=== PATIENT | female | born 1930 | race Caucasian/White ===

== ENCOUNTER 2016-10-16 17:52 | Emergency (ER) | payer MEDICARE, OTHER ==
[~2016-10-16] VITALS: Ht 160 cm; Wt 95.2 kg
[~2016-10-16 17:52] MED LIST: ADVIL200 M1 PO; ASPIRIN EC325 MG PO; ASPIRIN EC81 MG PO; CIPRO500 MG PO; CITALOPRAM HBR40 MG PO; CLEOCIN HCL300 MG PO; COUMADIN5 MG PO; COZAAR25 MG PO; DILTIAZEM 24HR180 MG PO; DILTIAZEM ER180 MG PO; FERROUS SULFAT325 MG PO; GLUCOSE TEST S1 EACH MC; HUMULIN 70100 UNIT/1 SUB-Q; IBUPROFEN400 MG PO; LANTUS100 UNIT/1 SUB-Q; LANTUS100 UNITS/ SUB-Q; LOSARTAN-HCTZ1 EAC1 PO; MELOXICAM7.5 MG PO; MILK OF MA400 MG/5 M PO; NITROSTAT0.4 MG SL; NORCO 5-325 TA1 EACH PO; NORVASC5 MG PO; NOVOLOG100 UNITS/ IV; PANTOPRAZOLE SO40 MG PO; POTASSIUM CHLO10 MEQ PO; POTASSIUM CHLO20 ME1 PO; PROTONIX40 MG PO; SIMVASTATIN10 MG PO; TYLENOL325 MG PO; VITAMIN C250 MG PO; WARFARIN SODIUM3 MG PO; ZOCOR10 MG PO; ZOFRAN ODT4 MG PO; [UNRECOGNIZED DRUG - REMARK]
[2016-10-16] MEDS ORDERED: NAPROSYN500 MG PO (20:27)
== END 2016-10-16 20:40 | disposition home or self-care (01) ==
LOC: ED 17:52
DX: M26.69 Other specified disorders of temporomandibular joint (principal); E11.9 Type 2 diabetes mellitus without complications; I11.0 Hypertensive heart disease with heart failure; I50.9 Heart failure, unspecified; E87.6 Hypokalemia; L82.1 Other seborrheic keratosis; Z86.73 Personal history of transient ischemic attack (TIA), and cerebral infarction without residual deficits; Z90.49 Acquired absence of other specified parts of digestive tract; Z88.0 Allergy status to penicillin; Z88.5 Allergy status to narcotic agent; Z79.4 Long term (current) use of insulin; Z79.82 Long term (current) use of aspirin; Z79.02 Long term (current) use of antithrombotics/antiplatelets; Z79.899 Other long term (current) drug therapy
CPT/HCPCS: 70486; 99284

== ENCOUNTER 2016-12-06 03:29 | Emergency (ER) | payer MEDICARE, OTHER ==
[~2016-12-06] VITALS: Ht 160 cm; Wt 95.2 kg
[~2016-12-06 03:29] MED LIST changes: +NAPROSYN500 MG PO
== END 2016-12-06 04:28 | disposition home or self-care (01) ==
LOC: ED 03:29
DX: S09.90XA Unspecified injury of head, initial encounter (principal); E11.9 Type 2 diabetes mellitus without complications; I11.0 Hypertensive heart disease with heart failure; I50.9 Heart failure, unspecified; I48.91 Unspecified atrial fibrillation; D64.9 Anemia, unspecified; Z86.73 Personal history of transient ischemic attack (TIA), and cerebral infarction without residual deficits; Z90.49 Acquired absence of other specified parts of digestive tract; Z90.89 Acquired absence of other organs; Z88.0 Allergy status to penicillin; Z88.5 Allergy status to narcotic agent; Z79.899 Other long term (current) drug therapy; Z79.82 Long term (current) use of aspirin; Z79.01 Long term (current) use of anticoagulants; W06.XXXA Fall from bed, initial encounter
CPT/HCPCS: 90471; 90715; 99282

== ENCOUNTER 2017-04-13 12:40 | Emergency (ER) | payer MEDICARE, OTHER ==
[~2017-04-13] VITALS: Ht 160 cm; Wt 95.2 kg
== END 2017-04-13 15:07 | disposition home or self-care (01) ==
LOC: ED 12:40
DX: R53.1 Weakness (principal); E11.9 Type 2 diabetes mellitus without complications; I11.0 Hypertensive heart disease with heart failure; I50.9 Heart failure, unspecified; I48.91 Unspecified atrial fibrillation; Z79.01 Long term (current) use of anticoagulants; Z88.0 Allergy status to penicillin; Z88.5 Allergy status to narcotic agent; Z79.4 Long term (current) use of insulin; Z79.899 Other long term (current) drug therapy
CPT/HCPCS: 70450; 80053; 85025; 85610; 99284

== ENCOUNTER 2017-04-24 17:01 | Emergency (ER) | payer MEDICARE, OTHER ==
[~2017-04-24] VITALS: Ht 160 cm; Wt 95.2 kg
--- NOTE | 2017-04-24 18:34 | EKG ---
[facility] [address] [facility] [place] [address] Signed Atrial fibrillation Anteroseptal infarct , age undetermined Abnormal ECG No previous ECGs available Confirmed by EARNEST BOYLE MD ([id number]) on 04/24/2017 6:34:03 PM Electronically Signed By: EARNEST BOYLE MD 04/24/17 1834 PATIENT NAME: JULIA SOLORIO Electrocardiogram DATE OF : 34 PHYSICIAN: EARNEST BOYLE MD REPORT #: [id number] REPORT IS CONFIDENTIAL AND NOT TO BE RELEASED WITHOUT AUTHORIZATION
== END 2017-04-24 19:20 ==
LOC: ED 17:01
DX: E11.649 Type 2 diabetes mellitus with hypoglycemia without coma (principal); I11.0 Hypertensive heart disease with heart failure; I48.91 Unspecified atrial fibrillation; D64.9 Anemia, unspecified; I48.2 Chronic atrial fibrillation; Z88.0 Allergy status to penicillin; Z88.5 Allergy status to narcotic agent; Z79.899 Other long term (current) drug therapy; Z79.01 Long term (current) use of anticoagulants
CPT/HCPCS: 80053; 81001; 85025; 87077; 87088; 87186; 93005; 93010; 99285

== ENCOUNTER 2018-04-20 13:32 | Emergency (ER) | payer MEDICARE, OTHER ==
[~2018-04-20] VITALS: Ht 160 cm; Wt 90.7 kg
[~2018-04-20 13:32] MED LIST changes: +COZAAR100 MG PO; +ELIQUIS2.5 MG PO; +NOVOLIN R100 UNIT/1 INJ
== END 2018-04-20 15:28 | disposition home or self-care (01) ==
LOC: ED 13:32
PROC: 2W3DX1Z Immobilization of Left Lower Arm using Splint (ICD-10-PCS; principal; 2018-04-20)
DX: M02.332 Reiter's disease, left wrist (principal); E11.9 Type 2 diabetes mellitus without complications; I48.91 Unspecified atrial fibrillation; I11.0 Hypertensive heart disease with heart failure; D64.9 Anemia, unspecified; I50.9 Heart failure, unspecified; G47.30 Sleep apnea, unspecified; Z86.73 Personal history of transient ischemic attack (TIA), and cerebral infarction without residual deficits; E78.5 Hyperlipidemia, unspecified; Z88.0 Allergy status to penicillin; Z88.5 Allergy status to narcotic agent; Z79.899 Other long term (current) drug therapy
CPT/HCPCS: 29125; 73110; 99283-25

== ENCOUNTER 2018-06-29 07:34 | Emergency (ER) | payer MEDICARE, OTHER ==
[~2018-06-29] VITALS: Ht 160 cm; Wt 90.7 kg
[2018-06-29] MEDS ORDERED: NOVOLIN 70100 UNIT/1 (08:22)
[2018-06-29] MEDS ORDERED: BACTRIM DS TAB1 EACH PO (08:24)
[2018-06-29] MEDS ORDERED: VITAMIN C250 MG PO (08:27)
[2018-06-29] MEDS ORDERED: ZOFRAN4 MG PO (08:31)
[2018-06-29] MEDS ORDERED: ULTRAM50 MG PO (08:32)
[2018-06-29] MEDS ORDERED: COZAAR100 MG PO (09:19)
== END 2018-06-29 09:43 | disposition home or self-care (01) ==
LOC: ED 07:34
DX: R07.89 Other chest pain (principal); R41.0 Disorientation, unspecified; E87.1 Hypo-osmolality and hyponatremia; E87.6 Hypokalemia; E11.9 Type 2 diabetes mellitus without complications; I11.0 Hypertensive heart disease with heart failure; I50.9 Heart failure, unspecified; E78.5 Hyperlipidemia, unspecified; D64.9 Anemia, unspecified; Z86.73 Personal history of transient ischemic attack (TIA), and cerebral infarction without residual deficits; Z90.49 Acquired absence of other specified parts of digestive tract; Z88.0 Allergy status to penicillin; Z88.5 Allergy status to narcotic agent; Z79.899 Other long term (current) drug therapy; Z79.4 Long term (current) use of insulin; W19.XXXA Unspecified fall, initial encounter
CPT/HCPCS: 70450; 80053; 85025; 99285-25

== ENCOUNTER 2018-07-30 14:57 | Emergency (ER) | payer MEDICARE, OTHER ==
[~2018-07-30] VITALS: Ht 160 cm; Wt 90.7 kg
[~2018-07-30 14:57] MED LIST changes: +BACTRIM DS TAB1 EACH PO; +NOVOLIN 70100 UNIT/1; +ULTRAM50 MG PO; +ZOFRAN4 MG PO
== END 2018-07-30 18:09 | disposition home or self-care (01) ==
LOC: ED 14:57
DX: S70.02XA Contusion of left hip, initial encounter (principal); S70.01XA Contusion of right hip, initial encounter; E11.9 Type 2 diabetes mellitus without complications; I11.0 Hypertensive heart disease with heart failure; I50.9 Heart failure, unspecified; I48.91 Unspecified atrial fibrillation; Z86.73 Personal history of transient ischemic attack (TIA), and cerebral infarction without residual deficits; Z90.49 Acquired absence of other specified parts of digestive tract; Z88.0 Allergy status to penicillin; Z88.5 Allergy status to narcotic agent; Z79.4 Long term (current) use of insulin; Z79.899 Other long term (current) drug therapy; W18.30XA Fall on same level, unspecified, initial encounter
CPT/HCPCS: 72131; 72192; 99283-25

== ENCOUNTER 2018-10-03 05:33 | Emergency (ER) | payer MEDICARE, OTHER ==
[~2018-10-03] VITALS: Ht 160 cm; Wt 90.7 kg
[~2018-10-03 05:33] MED LIST changes: +ACETAMINOPHEN500 MG PO; +KEFLEX500 MG PO; +MACULAR HEALTH1 EACH PO; +NYSTATIN1 EAC9 MISC; +SYSTANE 0.3-0.415 ML OPTH
[2018-10-03] MEDS ORDERED: FUROSEMIDE20 MG PO (10:00)
--- NOTE | 2018-10-03 14:34 | EKG ---
[facility] [address] [facility] [place] [address] Signed Atrial fibrillation with premature ventricular or aberrantly conducted complexes Left axis deviation Anterolateral infarct (cited on or before 24-APR-2017) Abnormal ECG When compared with ECG of 24-APR-2017 18:21, Questionable change in initial forces of Lateral leads Nonspecific T wave abnormality has replaced inverted T waves in Inferior leads Confirmed by BECKY MEDINA DO ([id number]) on 10/03/2018 2:34:35 PM Electronically Signed By: BECKY MEDINA DO 10/03/18 1434 PATIENT NAME: JULIA SOLORIO Electrocardiogram DATE OF : 34 PHYSICIAN: BECKY MEDINA DO REPORT #: [id number] REPORT IS CONFIDENTIAL AND NOT TO BE RELEASED WITHOUT AUTHORIZATION
== END 2018-10-03 10:20 | disposition home or self-care (01) ==
LOC: ED 05:33
DX: I11.0 Hypertensive heart disease with heart failure (principal); I50.9 Heart failure, unspecified; E11.9 Type 2 diabetes mellitus without complications; Z86.73 Personal history of transient ischemic attack (TIA), and cerebral infarction without residual deficits; Z88.0 Allergy status to penicillin; Z88.5 Allergy status to narcotic agent; Z79.4 Long term (current) use of insulin; Z79.899 Other long term (current) drug therapy
CPT/HCPCS: 71045; 80053; 83735; 83880; 84484; 85025; 93005; 93010; 96374; 99285-25; J1940

== ENCOUNTER 2018-10-13 07:48 | Inpatient (IN) | payer MEDICARE, OTHER ==
[~2018-10-13] VITALS: Ht 160 cm; Wt 81.6 kg
[~2018-10-13 07:48] MED LIST changes: +FUROSEMIDE20 MG PO
--- OUTSIDE RECORDS SUMMARY | 2018-10-13 07:50 | XMS ---
PreManage Notification: JULIA SOLORIO Security Freight Rate Analyst Events No recent Security Events currently on file CRITERIA MET - 6 ED Visits in 6 Months - [facility] - 2 Visits in 30 Days CARE PROVIDERS Kevin Gordon Current PHONE: Unknown Jaime has no Care Guidelines for this patient. Lisa VISIT COUNT (12 MO.) 6 [facility] TOTAL 6 NOTE: Visits indicate total known visits. ED/UCC VISIT TRACKING (12 MO.) 10/13/2018 07:48 [facility] TYPE: Emergency COMPLAINT: - SOB 10/03/2018 05:33 [facility] TYPE: Emergency COMPLAINT: - SOB DIAGNOSES: - Heart failure, unspecified - Allergy status to penicillin - Personal history of transient ischemic attack (TIA), and cerebral infarction without residual deficits - Shortness of breath - terminal make up operator (current) use of insulin - Hypertensive heart disease with heart failure - Other care home (current) drug therapy - Type 2 diabetes mellitus without complications - Allergy status to narcotic agent status 08/31/2018 15:48 [facility] TYPE: Emergency COMPLAINT: - FALL DIAGNOSES: - Heart failure, unspecified - Hypertensive heart disease with heart failure - Low back pain - Allergy status to narcotic agent status - Fall on same level, unspecified, initial encounter - Other care home (current) drug therapy - Personal history of transient ischemic attack (TIA), and cerebral infarction without residual deficits - correction (current) use of insulin - Type 2 diabetes mellitus without complications - Allergy status to penicillin - Pain in left hip - Unspecified atrial fibrillation 07/30/2018 14:58 [facility] TYPE: Emergency COMPLAINT: - FALL DIAGNOSES: - Pain in right hip - Unspecified atrial fibrillation - Heart failure, unspecified - Fall on same level, unspecified, initial encounter - Hypertensive heart disease with heart failure - Allergy status to narcotic agent status - Other termite control technician (current) drug therapy - Allergy status to penicillin - Contusion of left hip, initial encounter - Contusion of right hip, initial encounter - Type 2 diabetes mellitus without complications - terminal make up operator (current) use of insulin - Personal history of transient ischemic attack (TIA), and cerebral infarction without residual deficits - Acquired absence of other specified parts of digestive tract 06/29/2018 07:34 [facility] TYPE: Emergency COMPLAINT: - ALT LOC DIAGNOSES: - Anemia, unspecified - Acquired absence of other specified parts of digestive tract - Type 2 diabetes mellitus without complications - Hypertensive heart disease with heart failure - Hyperlipidemia, unspecified - Disorientation, unspecified - terminal make up operator (current) use of insulin - Other care home (current) drug therapy - Allergy status to penicillin - Unspecified fall, initial encounter - Personal history of transient ischemic attack (TIA), and cerebral infarction without residual deficits - Hypokalemia - Heart failure, unspecified - Hypo-osmolality and hyponatremia - Allergy status to narcotic agent status - Pleurodynia - Other chest pain 04/20/2018 13:[address] [facility] [place] TYPE: Emergency COMPLAINT: - L ARM PAIN DIAGNOSES: - Type 2 diabetes mellitus without complications - Allergy status to narcotic agent status - Pain in left wrist - Christy's disease, left wrist - Hypertensive heart disease with heart failure - Personal history of transient ischemic attack (TIA), and cerebral infarction without residual deficits - Heart failure, unspecified - Allergy status to penicillin - Other termite control technician (current) drug therapy - Anemia, unspecified - Hyperlipidemia, unspecified - Sleep apnea, unspecified - Unspecified atrial fibrillation INPATIENT VISIT TRACKING (12 MO.) No inpatient visits to display in this time frame [email or web address]
--- NOTE | 2018-10-13 13:00 | NUR ---
PT ADMITTED AND ASSESSMENT COMPLETED. PT DAUGHTER CAME INTO SEE PT. SHE WILL BE BACK TOMMORROW AT SOME POINT. PT LUNCH ORDERED, PT BED IS IN THE LOWEST POSITION, CALL LIGHT WITHIN REACH.
[2018-10-13] MEDS ORDERED: ISOSORBIDE MONO30 MG PO (14:18)
[2018-10-13] MEDS ORDERED: NOVOLIN 70100 UNIT/1 SUB-Q (14:22)
[2018-10-13] MEDS ORDERED: NYSTATIN15 GM TOP (14:30)
--- NOTE | 2018-10-13 14:33 | NUR ---
MEDICATION RECONCILIATION COMPLETED USING THE MAR FROM KYREE SHIPLEY
--- NOTE | 2018-10-13 15:15 | NUR ---
PT ATE SOME OF HER LUNCH AT WAS ORDERED FOR HER. PT DENIES PAIN AND DOES NOT WANT TO WATCH TV AT THIS TIME. PT IS ABLE TO USE CALL LIGHT WHEN SHE WANTS OR NEEDS SOMTHING.
--- NOTE | 2018-10-13 16:05 | EKG ---
[facility] [address] [facility] [place] [address] Signed Atrial fibrillation Left axis deviation Anteroseptal infarct (cited on or before 24-APR-2017) Abnormal ECG When compared with ECG of 03-OCT-2018 05:47, Nonspecific T wave abnormality no longer evident in Anterior leads Confirmed by EARNEST BOYLE MD ([id number]) on 10/13/2018 4:05:33 PM Electronically Signed By: EARNEST BOYLE MD 10/13/18 1605 PATIENT NAME: DANIELA SOLORIOFERNANDO BENJAMIN Electrocardiogram DATE OF : 34 PHYSICIAN: EARNEST BOYLE MD REPORT #: [id number] REPORT IS CONFIDENTIAL AND NOT TO BE RELEASED WITHOUT AUTHORIZATION
--- NOTE | 2018-10-13 16:44 | NUR ---
PT APPEARS TO BE ASLEEP AT THIS TIME, SPO2 97% WITH O2 AT 2L'S VIA NC.
--- NOTE | 2018-10-13 18:05 | NUR ---
DR BOYLE NOTIFIED ABOUT VITAL SIGNS TRENDS, NO NEW ORDERS AT THIS TIME.
--- NOTE | 2018-10-13 18:25 | NUR ---
PT REFUSED TO BRUSH HER TEETH AT THIS TIME. "I AM JUST NOT UP TO IT RIGHT NOW" STAFF LOWERED PT HEADS SO SHE CAN REST AT THIS TIME.
--- NOTE | 2018-10-13 19:33 | NUR ---
SHIFT REPORT RECEIVED SPOKE WITH [facility] PATIENT'S POLST FORM. STAFF THERE REPORT THE ORIGINAL FORM WAS SENT WITH THE PATIENT TO THE ED ON A VISIT AT AN UNKNOWN TIME. NO COPY IS AVAILABLE AT THIS TIME. NOTIFIED.
--- NOTE | 2018-10-13 20:22 | NUR ---
EVENING ASSESSMENT DONE. PATIENT ORIENTED TO LOCATION, YEAR AND SELF. STATES SHE IS HERE FOR "BEING SHORT OF BREATH". DISCUSSED FINDINGS WITH HEART FAILURE AND PLAN FOR LASIX AND ECHO TOMORROW. PATIENT DENIES PAIN OR FEELING SOB. TOLERATING 2L NC, TITRATED TO 1L NC. LUNG SOUNDS CLEAR IN UPPER LOBES WITH CRACKLES IN CATIA BASES. SLIGHTLY MORE ON THE RIGHT. HEART SOUNDS IRREGULAR WITH HIGH PITCHED S2. ABD SOFT AND NONTENDER. PATIENT DENIES GI UPSET. EDEMA NOTED IN CATIA LOWER EXTREMITITES, 3+ TO UPPER THIGHS. CMS INTACT. DIANE DRAINING DILUTE YELLOW URINE. BCG WNL, NO SSI REQUIRED. PATIENT DENIES ANY NEEDS. CALL LIGHT IN REACH.
--- NOTE | 2018-10-13 20:53 | NUR ---
RT IN TO SEE PATIENT. IS USED. PATIENT TOLERATING 1L NC WITH 95% O2 SAT.
--- NOTE | 2018-10-13 22:16 | NUR ---
PATIENT RESTING IN BED. VS STABLE. DENIES ANY NEEDS AT THIS TIME. CALL LIGHT IN HAND.
--- NOTE | 2018-10-14 00:30 | NUR ---
SCHEDULED MEDICATIONS PROVIDED PER ORDER. PATIENT ORIENTED TO SELF AND PLACE. DENIES ANY NEEDS. APPEARS TO HAVE SLIGHTLY LABORED BREATHING. PATIENT REMOVED NC. O2 SAT 87% ON ROOM AIR. 1L NC PLACED ON PATIENT.
--- NOTE | 2018-10-14 04:30 | NUR ---
PATIENT RESTING IN BED. ORIENTED TO PLACE AND EVENT. DENIES ANY SOB OR PAIN. LUNG SOUNDS CONTINUE TO BE CLEAR IN UPPER LOBES CATIA WITH CRACKLES IN THE BASES. TOLERATING 1L NC. EDEMA IN LOWER EXTREMITITES IMPROVED FROM 3+ TO 2+. DIANE EMPTIED, URINE CLEAR AND DILUTE. PATIENT DENIES ANY NEEDS. CALL LIGHT IN REACH.
--- NOTE | 2018-10-14 06:13 | NUR ---
PATIENT UP TO BEDSIDE FOR STANDING WEIGHT. PATIENT REQUIRED 2 PERSON ASSIST AND WAS SOB FROM THE EFFORT. ASSISTED PATIENT BACK TO BED, HOB ELEVATED. STANDING WEIGHT 182.8 LBS COMPARED TO 194 LB BED WEIGHT YESTERDAY.
--- NOTE | 2018-10-14 06:44 | NUR ---
PATIENT CALLING OUT FOR HELP. REPORTS FEELING HIGH IN THE AIR AND BEING AFRAID OF HEIGHTS. "PUT ME DOWN OUT OF THE AIR, I KNOW WHAT YOU ARE TRYING TO DO". ATTEMPTS TO CALM THE PATIENT WERE UNSUCESSFUL AND PATIENT DEMANDED STAFF LEAVE THE ROOM. THIS RN RETURNED TO THE ROOM 5 MINS LATER AND THE PATIENT WAS IN GOOD SPIRITS AND DENIED ANY NEEDS.
--- NOTE | 2018-10-14 07:33 | NUR ---
PATIENT HAVING ECHO DONE AT THIS TIME. HEART RATE IN THE 80s, AFIB. LAST BP 163/71.
--- NOTE | 2018-10-14 08:41 | NUR ---
PATIENT RESTING IN BED UPON INITIAL ASSESSMENT. PT STATES SHE IS FEELING BETTER COMPARED TO WHEN SHE CAME INTO THE HOSPITAL. PT NOTES, "I'M GOING TO NEED TO GO HOME SOMETIME TODAY, I'VE GOT SOME THINGS TO TAKE CARE OF." WHEN PATIENT ASKED FURTHER WHY SHE NEEDS TO GO HOME, SHE STATES, "WELL I'VE GOT SOME CHECKS TO WRITE, AND I NEED TO GET MY CLOTHES ORDERED FROM THE CATALOG." DISCUSSION HAD WITH PATIENT REGARDING HER REASON FOR ADMISSION AND IMPORTANCE OF STAYING IN HOSPITAL UNTIL SHE IS WELL. PT ABLE TO ANSWER ORIENTATION QUESTIONS CORRECTLY, BUT STILL SEEMS SOMEWHAT CONFUSED ABOUT RECENT EVENTS. PT NOTES SHE HAS FALLEN AT LEAST 3 TIMES LATELY. BREAKFAST ORDERED FOR PATIENT. ASSESSMENT COMPLETE. PT HAS VERY LOUD MURMUR HEARD THROUGHOUT CHEST. CALL LIGHT WITHIN REACH.
--- NOTE | 2018-10-14 10:09 | NUR ---
DR. BOYLE IN ROOM TO SEE PATIENT. PLAN TO GIVE MORE LASIX TODAY. PT REMAINS PLEASANTLY CONFUSED, AND OFTEN REPEATS HERSELF. IV MAG STARTED AND ORAL POTASSIUM GIVEN. 40 MG LASIX GIVEN (SEE EMAR). PT HAS BEEN DROPPING SP02 DOWN TO 88% ON ROOM AIR. 1 L NC TURNED BACK ON AT THIS TIME. PT DENIES FURTHER NEEDS AND CALL LIGHT WITHIN REACH.
--- NOTE | 2018-10-14 11:13 | NUR ---
PATIENT WORKING WITH PHYS. THERAPY AND NOW UP IN CHAIR. PT IS A 2 PERSON ASSIST OUT OF BED AND SLOW TO MOVE. BED IN LINENS CHANGED. PT WILL EAT LUNCH WHILE SITTING IN CHAIR. CONTINUE TO MONITOR.
--- NOTE | 2018-10-14 12:37 | NUR ---
PT SITTING UP IN BED, ALERT AND SEEMS TO BE PLEASANTLY CONFUSED. THE LONGER WE VISITED, THE MORE CONFUSED SHE BECAME AND DIDN'T SEEM TO BE AWARE. PT DID SAY THAT SHE WOULD LIKE THE CHAIR CAR ATTENDANT TO COME IN. I ALERTED HIM. SHE THANKED ME FOR VISIT. EXTENDED A BLESSING. WILL FOLLOW NEEDED
--- NOTE | 2018-10-14 12:41 | NUR ---
ASSESSMENT COMPLETE. PT REMAINS SITTING IN RECLINER AT THIS TIME EATING LUNCH. O2 1L NC INPLACE, SATS 96%, RR20. PT DENIES OTHER NEEDS AT THIS TIME. CALL LIGHT IN REACH.
--- NOTE | 2018-10-14 15:46 | NUR ---
BED BATH COMPLETE. DIANE CARE DONE. PT AMBULATED BACK TO BED WITH WALKER AND TWO PERSON STAND-BY ASSIST. PT PATTI WELL AND NOTES "I'M WALKING BETTER NOW THAN I WAS THIS MORNING". INCREASED SOB NOTED WITH AMBULATION. PT IN BED NOW, O2 SATS 91% OF RA, RR 22. PT DENIES NEEDS AT THIS TIME, CALL LIGHT IN REACH.
--- NOTE | 2018-10-14 16:48 | NUR ---
Certified Heart Failure Nurse Notes: Diagnosis: CHF History includes: diabetes, hypertension, murmur, atrial fibrillation PCP: Dr. Gordon Date of echocardiogram 10/14/18- results pending Social support system: Weight monitoring: Lives in assisted living. We will contact them to ensure scales present and weights are done with identifying when to notify PCP. Symptom management: Addressed monitoring and reporting changes in weight or symptoms Diet: Usual meals are from facility dining room. Reviewed high sodium foods to avoid with patient. She states she does not use table salt. Usual physical activity: not discussed at this initial visit Medication routine: Medications administered by facility. Tobacco:Na Advanced directive: Not discussed at this initial visit Recommendations prior to discharge: Document ambulation oxygen saturations prior to discharge Absence of orthostatic hypotension. Discharge weight less than admit weight. Discharge BNP less than admit (as per [facility] Heart Failure DC Bundle) Barriers to self-care include: cognitive limitations. During this discussion patient was distracted by her concerns for her spouse Bill. Teaching materials given today: [facility] Heart Failure bundle folder-[facility] My Action Plan Living Well with Heart Failure book, Daily weight and symptom monitoring log, Zones magnet, [facility] contact information
--- NOTE | 2018-10-14 17:00 | NUR ---
PT RESTING IN BED. ASSESSMENT COMPLETE. PT ON O2 @ 1L NC AT THIS TIME DUE TO O2 SATS DROPPING TO HIGH 80'S. RR 20, EVEN AND UNLABORED. PM MEDICATIONS GIVEN WITHOUT DIFFICULTY. DAUGHTER AT BEDSIDE. CALL LIGHT IN REACH.
--- NOTE | 2018-10-14 18:13 | NUR ---
PT UP TO BSC WITH WALKER AND TWO PERSON SBA TO HAVE A LARGE SEMI-LIQUID SOFT DARK GREEN BOWEL MOVEMENT. GETTING BACK TO BED PT HAD A NEAR FALL BACKWARDS INTO BED. PT SAYS SHE WAS "FALLING BACKWARDS AND THAT HAPPENS A LOT". PT BACK TO BED, HR IN THE 80'S O2 SATS 99% ON 1L NC. BOWEL MOVEMENT GUIAC NEGATIVE. PT DENIES OTHER NEEDS AT THIS TIME. CALL LIGHT IN REACH.
--- NOTE | 2018-10-14 19:30 | NUR ---
USED CALL LIGHT, ASKING IF WE HAD THROWN AWAY HER BOOKS. SHOWN HR BOOK BUT STATED SHE HAD A BARREL OF THEM OUT AT [facility]. REMINDED SHE WAS IN THE HOSPITAL. AT FIRST PT SL ANGRY BUT THEN WHEN REALIZED SHE WAS IN THE HOSPITAL WAS BETTER.
--- NOTE | 2018-10-14 20:46 | NUR ---
IS COOPERATIVE, AND ABLE TO NAME YEAR AND MONTH. DOES GET EVENTS MIXED UP. WAS ABLE TO TELL THAT SHE HAD BEEN INC OF STOOL. STOOL SOFTENER HELD. EAMON CARE DONE. DECLINES TO BRUSH TEETH OR WASH FACE. DENIES SOB. RT IN AND IS DONE. BS 157, COVERED WITH 1 UNIT REG INSULIN. PT STATES SHE IS READY FOR SLEEP.
--- NOTE | 2018-10-14 22:33 | NUR ---
AWAKE, PT THOUGHT SHE WAS INC, FOUND THAT HAD SMEAR OF STOOL. EAMON CARE DONE. PT IS A LITTLE MORE CONFUSED NOW, STATED SHE HAD TAKEN A FEW STEPS BUT NURSE REALIZED THAT SHE WAS REMEMBERING THAT FROM EARLIER TODAY. BED ALARM IS ON.
--- NOTE | 2018-10-14 23:45 | NUR ---
AWAKE, RESTING BUT NOT SLEEPING. NO CHANGE NEURO STATUS. BREATH TONES CRACKLES BASES BILAT, SL MORE ON R THANL TILTED TO R SIDE.
--- NOTE | 2018-10-15 00:28 | NUR ---
PT USED CALLED LIGHT TO TELL STAFF THAT SHE WAS INC OF STOOL. STOOL IS STICKY LIQUID GREEN. REPOSITIONED AFTER CARE DONE.
--- NOTE | 2018-10-15 01:34 | NUR ---
FOUND PT SITTING ON EDGE OF BED. BED ALARM HAD BEEN SET FOR OUT OF BED. PT WANTING TO GET DRESSED AND THOUGHT IT WAS AFTERNOON. WHEN TOLD IT WAS 0130 PT STATED IT DIDN'T MATTER SHE DIDN'T SLEEP ANYWAY. WAS ABLE TO FINALLY HAVE PT UNDERSTAND WAS AT THE HOSPITAL. ASSISTED INTO BED. BED ALARM TO EXITING AND ON.
--- NOTE | 2018-10-15 03:00 | NUR ---
RESTING BUT NOT SLEEPING. WILL OCC HEAR PT TALKING.
--- NOTE | 2018-10-15 04:05 | NUR ---
PT SITTING AT EDGE OF BED. WANTING TO GET DRESSED. UNABLE TO ORIENT TO HOSPITAL. ASKING ABOUT , STAES SHE HEARD PEOPLE TALKING THAT HE HAD BEEN VOMITING. REASURED THAT HE WAS OK AT [facility]. PT STOOD FOR WEIGHT AND PATTI WELL. ASSISTED WITH WALKER TO RECLINER CHAIR, NO SOB. STEPS ARE SHORT BUT STRONGER THAN YESTERDAY.
--- NOTE | 2018-10-15 04:22 | NUR ---
READING IN CHAIR.
--- NOTE | 2018-10-15 05:29 | NUR ---
CONT UP IN CHAIR. CONT TO BE WORRIED ABOUT ,STATING HE NEEDS TO GO TO THE DOCTOR TODAY. HAS ALSO BEEN SEEING PEOPLE IN ROOM AND HALLWAY. STATES SHE HAS HEARD THEM TALKING ABOUT MURDERING PEOPLE. REASURED AND DISTRACTED PT. IS CALMER FOR NOW.
--- NOTE | 2018-10-15 05:39 | NUR ---
PT CALLING OUT MORE, DR BOYLE CALLED ORDERS RECIEVED.
--- NOTE | 2018-10-15 06:01 | NUR ---
PT AT FIRST REFUSED PILLS. DAUGHTER CALLED AND SPOKE WITH PT. PT THEN CALMER AND AGREEABLE TO TAKE PILLS.
--- NOTE | 2018-10-15 06:48 | NUR ---
A LITTLE QUIETER BUT IS STILL HALUCINATING AND NOW PICKING AT AIR. REMAINS IN CHAIR WITH LEGS ELEVATED.
--- NOTE | 2018-10-15 07:40 | NUR ---
REPORT RECEIVED FROM DAY SHIFT RN. PT SITTING IN RECLINER WITH FEET ELEVATED. PT ALERT AND PLEASANTLY CONFUSED, ORIENTED TO SELF AND TIME. O2 1L NC IN PLACE, SATS 97%. HR IN THE 90'S. ASSESSMENT COMPLETE. PT EATING BREAKFAST AT THIS TIME. CALL LIGHT IN REACH.
--- NOTE | 2018-10-15 08:25 | NUR ---
PT UP TO BSC WITH WALKER AND TWO PERSON ASSIST TO HAVE SMALL BM. PT PATTI FAIR, NEEDS CONSTANT DIRECTION. INCREASED SOB NOTED WITH AMBULATION. PT BACK TO CHAIR WITH LEGS ELEVATED. PT DENIES OTHER NEEDS AT THIS TIME. CALL LIGHT IN REACH.
--- NOTE | 2018-10-15 09:56 | NUR ---
PT RESTING IN CHAIR WITH EYES CLOSED. RA SATS DROPPED TO 87% RR 16-18 EVEN AND UNLABORED HR LOW 80'S. PLACED PT BACK ON O2 1L NC. SATS IMPROVING TO MID 90'S. CALL LIGHT IN REACH.
--- NOTE | 2018-10-15 10:32 | NUR ---
PT IN CHAIR WITH EYES CLOSED, APPEARS TO BE TRYING TO SLEEP BUT IS RESTLESS. PT IS TALKING OUT WITH TWITCHING MOVEMENTS NOTED IN ARMS AND LEGS. PT AWAKENS TO SOFT TOUCH AND FOLLOWS COMMANDS APPROPRIATELY. HR IN THE 80'S, O2 97 ON 1L NC, RR EVEN AND UNLABORED. UA SENT TO THE LAB PER MD ORDERS.
--- NOTE | 2018-10-15 11:12 | NUR ---
DR BOYLE NOTIFIED OF UA RESULTS, AWAITING FURTHER ORDERS. PT RESTING IN RECLINER PEACEFULLY WITH EYES CLOSED. HR 70'S RR 17 O2 96% ON 1L/NC.
--- NOTE | 2018-10-15 12:04 | NUR ---
FAXED CHART NOTES TO [facility] PER PT REQ FOR A FRONT WHEELED WALKER. ALSO TALKED WITH DANTE FROM [facility] STATING THAT THEY HAD PER THEIR PHYSICAL THERAPIST WOULD LIKE PT TO HAVE A FWW. CHART NOTES FAXED INCLUDE FACE SHEET, H AND P, PROG NOTES, PT BENNY. SPOKE WITH YVETTE FROM [facility] AND THEY WILL BE DELIVERING SOMETIME TODAY. RECEIVED FAX CONFIRMATION OF THIS.
--- NOTE | 2018-10-15 12:45 | NUR ---
PT CONTINUES TO REST IN RECLINER. PATIENT REMAINS DROWSY. AWAKENS TO VOICE AND TOUCH BUT QUICKLY DOZES BACK OFF. PT IS REFUSING LUNCH AT THIS TIME. BLOOD SUGAR 161 WITH 1 UNIT SLIDING SCALE COVERAGE GIVEN. DIANE DRAINING CLEAR YELLOW URINE. ASSESSMENT COMPLETE. PT DENIES PAIN OR OTHER NEEDS AT THIS TIME. CALL LIGHT IN REACH.
--- NOTE | 2018-10-15 13:41 | NUR ---
PT TRANSFERRED FROM RECLINER TO BED WITH FWW AND TWO PERSON ASSIST. PATTI WELL. PT REMAINS DROWSY BUT ABLE TO FOLLOW COMMANDS. PT STATES "I'M JUST SO TIRED". PT DENIES PAIN BUT CONTINUES TO MOAN AND TALK OUT. SIDE RAILS UP X2 FOR SAFETY CALL LIGHT IN REACH.
--- NOTE | 2018-10-15 14:00 | NUR ---
DR. BOYLE CALLED TO UPDATE REGARDING PATIENT AT THIS TIME. NO FURTHER ORDERS REC'D. PT RESTING IN BED. BED ALARM ON FOR SAFETY. SP02 96% ON 1 L. DIANE DRAINING DILUTE URINE. PT AWAKENS TO VOICE BUT EASILY FALLING BACK ASLEEP.
--- NOTE | 2018-10-15 14:24 | NUR ---
PRINCE QUINTEROS MENTIONED THAT PT HAD A ROUGH MORNING, AND WAS NOW RESTING. I WILL CHECK BACK AGAIN AT A LATER TIME
--- NOTE | 2018-10-15 15:18 | NUR ---
PT RESTING IN BED WITH EYES CLOSED. OCCASIONAL TWITCHING AND MOANING/TALKING NOTED. PT AROUSES WHEN SPOKEN TO BUT QUICKLY NODS BACK OFF AGAIN. PT DENIES NEEDS AT THIS TIME.
--- NOTE | 2018-10-15 16:00 | NUR ---
PT REMAINS DROWSY, AWAKENS TO VOICE AND TOUCH. THIS RN AND NELI MORRISON ATTEMPTED BED BATH. DIANE CARE COMPLETE. PT BECAME SOMEWHAT COMBATIVE DURING CARE, PT DISORIENTED TO PLACE AND CIRCUMSTANCES. WILL HOLD OFF FOR NOW WITH REMAINING PERSONAL CARE AND REAPPROACH LATER.
--- NOTE | 2018-10-15 17:30 | NUR ---
PT UP TO BSC WITH FWW AND TWO PERSON SBA TO HAVE LOSE SEMI-SOLID DARK GREEN BOWEL MOVEMENT. PT BACK TO BED, PATTI WELL. PT AWAKE VISITING WITH DAUGHTER, GABBY. DINNER TRAY ORDERED.
--- NOTE | 2018-10-15 18:31 | NUR ---
PT REMAINS DROWSY, ANSWERS MORE APPROPRIATELY THIS EVENING. DAUGHTER ASSISSTED WITH DINNER, PT ATE 95%. ASSISTED PT WITH INCENTIVE SPIROMETER. PT IN BED WITH BED ALARM ON FOR SAFETY. CALL LIGHT IN REACH.
--- NOTE | 2018-10-15 19:30 | NUR ---
REPORT RECIEVED FROM CCU RN, CARE ASSUMED AT THIS TIME. PT ASSESSMENT COMPLETED, PT SLEEPY BUT EASY TO AROUSE. ORIENTED TO PLACE AND SELF, BUT NOT ENGINE COWLING INSTALLER OR TIME. NO REPORTS OF PAIN OR DISCOMFORT. PLAN OF CARE DISCUSSED. BED ALARM IN PLACE, CALL LIGHT WITHIN REACH. NO FURTHER ASSESSED OR REPORTED NEEDS AT THIS TIME.
--- NOTE | 2018-10-15 21:00 | NUR ---
IN FOR MEDICATION ADMINISTRATION AND PATIENT CARE. DIANE CARE AND REPOSITIONING DONE AT THIS TIME. NYSTATIN POWDER APPLIED UNDER BREASTS AND TO FOLDS NEAR EAMON AREA. CALL LIGHT WITHIN REACH, BED ALARM IN PLACE FOR PATIENT SAFETY.
--- NOTE | 2018-10-15 22:00 | NUR ---
IN TO CHECK ON PATIENT, RESTING IN STETCHER WITH EYES CLOSED, BREATHING EVEN AND UNLABORED. EASILY ROUSABLE. AT THIS TIME PATIENT IS ORIENTED TO SELF AND TO BEING IN THE HOSPITAL. STATES SHE FEELS TIRED STILL. BED ALARM REMAINS ON AT THIS TIME.
--- NOTE | 2018-10-16 00:16 | NUR ---
IN TO ASSESS PATIENT. ASSISTED WITH REPOSITIONING. NO COMPLAINTS OR NEEDS AT THIS TIME. CALL LIGHT WITHIN REACH AND BED ALARM ON FOR PATIENT SAFETY.
--- NOTE | 2018-10-16 01:27 | NUR ---
PT AT THIS TIME IS AWAKE AND NEEDED TO BE RE-ORIENTED TO PLACE, DATE, DAY AND TIME WELL CIRCUMSTANCE. PT WAS CALLING OUT FOR HELP BUT WAS RE-ORIENTED WITHOUT DIFFICULTY. PT WILL TRY TO SLEEP SOME MORE. V/S WDL.
--- NOTE | 2018-10-16 02:00 | NUR ---
PT IN ROOM GROANING WITH EYES CLOSED. AWOKE WHEN SPOEKN TO, AND STATED SHE WAS HAVING MILD 3/10 NECK PAIN. DENIED NEED FOR ANY MEDICATION AT THIS TIME. ASSISTED WITH REPOSITIONING. CALL LIGHT WITHIN REACH. NO FURTHER ASSESSED OR STATED NEEDS.
--- NOTE | 2018-10-16 03:00 | NUR ---
IN ROOM TO CHECK ON PATIENT, COMPLAINS OF NECK PAIN. GIVEN HEATING PAD AND ASSISSTED PATIENT WITH POSITION CHANGE. CALL LIGHT WITHIN REACH, BED ALARM ON FOR SAFETY. NO FURTHER NEEDS AT THIS TIME.
--- NOTE | 2018-10-16 04:55 | NUR ---
PT AWAKE, STILL COMPLAINING OF NECK PAIN. GIVEN TYLENOL AT THIS TIME. PT APPEARS MORE ALERT AND ORIENTED AT THIS TIME. STATES SHE FEELS WELL RESTED. MADE PLAN WITH PATIENT TO GET HER UP INTO THE CHAIR LATER IN THE MORNING. CALL LIGHT WITHIN REACH. BED ALARM ON. NO FURTHER NEEDS AT THIS TIME.
--- NOTE | 2018-10-16 06:20 | NUR ---
PT REPORTS NECK FEELS BETTER. REFUSED GETTING UP INTO RECLINER AT THIS TIME. REORIENTED PATIENT TO LOCATION AND SITUATION. CALL LIGHT WITHIN REACH. NO FURTHER NEEDS AT THIS TIME.
--- NOTE | 2018-10-16 07:30 | NUR ---
PATIENT SHIFT REPORT RECEIVED FROM AUTO BODY MECHANIC APPRENTICE RN. PATIENT IS RESTING IN BED AT THIS TIME WITH BED ALARM IN PLACE. PER REPORT PT IS CONFUSED AND FORGETFUL. CALL LIGHT PROVIDED. WILL CONTINUE TO REORIENT AND REDIRECT NEEDED.
--- NOTE | 2018-10-16 09:16 | NUR ---
PT SHIFT ASSESSMENT COMPLETED. PATIENT IS RESTING IN BED. PATIENT IS NOTED TO BE HARD OF HEARING. PT IS ORIENTED TO SELF AT THIS TIME. BREATH SOUNDS COARSE. INCENTIVE SPIROMETER UP TO 1000 WITH EDUCATION ON HOW TO USE. PATIET FOLLOWS DIRECTIONS WELL. OXYGEN WEANED OFF LAST NIGHT AND SPO2 REMAINS 96% ON ROOM AIR. PATIENT DENEIS PAIN THIS AM. BOWEL TONES ACTIVE. BREAKFAST ORDERED. DIANE CATHETER IN PLACE. WILL CONTINUE TO CLOSELY MONITOR.
--- NOTE | 2018-10-16 10:30 | NUR ---
PATIENT RESTING IN BED DRINKING A CUP OF COFFEE. CALL LIGHT IN REACH. BED ALARM ON. PATIENT DENIES ANY NEEDS AT THIS TIME. OPENED THE ROOM BLINDS. AWAITING TRANSFER TO THE [facility] UNIT.
--- NOTE | 2018-10-16 10:59 | NUR ---
1100: PT ARRIVED TO MED-SURG VIA CHAIR. CHAIR ALARM IS ON AND PT DENIES ANY PAIN OR SOB. REPORT RECEIVED FROM SHARIFA MORRISON. PT ORIENTED TO HER ROOM AND GIVEN THE CALL KIRKLNAD.
--- NOTE | 2018-10-16 11:01 | NUR ---
PT REPORT GIVEN TO ARMIN MORRISON ON MEDSURG. PATIENT IS TRANSFERED TO ROOM 111. ASSISTED PATIENT UP TO CHAIR WITH 2 PERSON ASSSIT AND A WALKER. CHAIR ALARM IN PLACE FOR PATIENT SAFETY. PATIENT DENIES ANY NEEDS AT THIS TIME. UPDATED STAFF ON MEDSUR ABOUT HOW MUCH FLUID SHE HAS HAD SO FAR TODAY OF HER FLUID RESTRICTION. DIANE EMPTIED. NO OTHER NEEDS AT THIS TIME.
--- NOTE | 2018-10-16 13:55 | NUR ---
Pt resting in her chair and she continues to denie any pain or sob.
--- NOTE | 2018-10-16 14:58 | NUR ---
Pt resting in her chair and she denies any pain or sob.
--- NOTE | 2018-10-16 15:15 | NUR ---
PHYSICAL THERAPY IN THE ROOM WORKING WITH THE PT.
--- NOTE | 2018-10-16 16:45 | NUR ---
PT SHOWERING WITH THE HELP OF THE SHEET METAL PRODUCTION WORKER AT THIS TIME.
--- NOTE | 2018-10-16 17:37 | NUR ---
Pt resting in her chair visiting with her family that came to visit.
--- NOTE | 2018-10-16 20:06 | NUR ---
uP FROM CHAIR TO BED EARLIER AT BEGINING OF SHIFT. TOLERATED WELL 2PA/FWW. COOP WITH ASSESSMENT, PLEASANTLY CONFUSED, TOOK MEDS W/O PROBLEMS, CONTINUES ON 1600 FLUID RESTRICTION, F/C PATENT, DRAINING CLEAR YELLOW URINE, CBG 206, RECEIVED SS INSULIN AND LANTUS, 1+ EDEMA LE, MINIMUM MOVEMENT L ARM NOTED, MOVES R ARM MORE, ATTENDS IN PLACE. BED ALRM ON. CALL LIGHT AT BEDSIDE
--- NOTE | 2018-10-16 23:06 | NUR ---
repositioned in bed, tolerated well, f/c patent, pleasantly confused. Bed alarm on. Fall and aspiration precautions inplace.Call light at bedside
--- NOTE | 2018-10-17 00:42 | NUR ---
Pt repositoned in bed, legs elevated, f/c patent, took sips of water, still on fluid restriction, moans when moved, but denies being in pain. Bed alarm on. Call light at bedside
--- NOTE | 2018-10-17 03:00 | NUR ---
Turned to r side, toleratd well, procedure explained, moans when turned but denies c/o pain. tolerating sips of water. f/c patent, call light at bedside
--- NOTE | 2018-10-17 04:28 | NUR ---
Pt awakes easily, turned Q2H, cooperataive, stiffness of legs and decreased movmentof R arm notd, On room air. Needs helps feeding, on 1600 fluids restriction, CBG earlier 209 w ss insulin coverage and Lantus. Has f/c patent. daily bed weight 180.1# bed weight. Easily redirectable, SL patent Fall and Aspiration precautions inplace, call light at bedside, Bed alarm on.
--- NOTE | 2018-10-17 05:53 | NUR ---
TURNED, MOANS WHEN TURNED, THEN QUIETS DOWN, DENIES BEING IN PAIN, TOLERATING SIPS OF FLUIDS THIS SHIFT. F/C PATENT. CALL LIGHT AT BEDSIDE,ALL PROCEDURES EXPLAINED PRIOR TO. NO BM THIS SHIFT
--- NOTE | 2018-10-17 07:14 | NUR ---
PT RESTING IN BED WITH NO COMPLAINTS AND HER CALL KIRKLAND WITHIN REACH. 0700: REPORT RECEIVED FROM JAYJAY MORRISON.
--- NOTE | 2018-10-17 08:18 | NUR ---
PT RESTING IN BED AND SHE DENIES ANY PAIN OR NEW PROBLEMS. VITAL SIGNS STABLE. PT TURNED IN HER BED. NEW IV PLACED IN HER LEFT WRIST. PT REMAINS CONFUSED WHICH IS HER BASELINE.
--- NOTE | 2018-10-17 09:20 | NUR ---
BENEDICTO MEJIA ORDERED. ATTENDS IN PLACE.
--- NOTE | 2018-10-17 09:46 | NUR ---
PT WORKING WITH PHYSICAL THERAPY AT THIS TIME.
--- NOTE | 2018-10-17 10:55 | NUR ---
Pt transfered to the chair with a 3 person assist. Ivon yelled out several times stating that she is hurting and that we are bruising her, she did this when touched is several different places. Once she was in the chair she stopped yelling and states that she is comfortable. Her legs are elevated and the chair alarm is turned on. A fresh attends was also placed at this time.
--- NOTE | 2018-10-17 11:12 | NUR ---
TALKED WITH PT AFTER DR MEDINA CAME TO ME AND STATED THAT HE FEELS SHE NEEDS TO GO TO A SNF FOR EXTENDED REHAB. TALKED TO THE PT ABOUT THIS AND SHE SAID [facility] IS FINE. I ALSO WITH PT PERMISSION CALLED AND LEFT MESSAGES FOR HER DAUGHTER AT [phone] AND AT [phone]. FAXED CHART NOTES INCLUDING FACE SHEET, ER NOTES AND SUMMARY, H AND P, PROG NOTES, PT EVAL AND NOTES TO [facility]. SPOKE WITH NADINE AND SHE STATED THAT THEY WOULD REVEIW THE CHART NOTES AND LET US KNOW.
--- NOTE | 2018-10-17 11:32 | NUR ---
PT ASSISTED TO THE BSC AND VOIDED 225 ML OF YELLOW URINE. THIS WAS HER FIRST VOID POST DIANE DC.
--- NOTE | 2018-10-17 12:10 | NUR ---
Pt sleeping at this time.
--- NOTE | 2018-10-17 12:30 | NUR ---
received a phonCALL FROM PT DAUGHTER GABBY, EXPLAINED THAT DR MEDINA FEELS SHE NEEDS SNF PLACEMENT FOR CONTINUED THERAPIES. OFFERED DAUGHTER THE CHOICES STATED THAT HER MOTHER HAD SAID [facility] WOULD BE OK SHE MAY BE [facility] AND SHE WANTS TO STAY IN [place]. DAUGHTER STATED THAT WOULD BE OK AND SHE ASKED WHAT SHE HAD TO DO FOR THIS. I EXPLAINED THAT WE WILL SEE THAT SHE GETS THERE AND SHE WILL NEED TO SIGN PAPER WORK FOR HER MOM.
--- NOTE | 2018-10-17 13:30 | NUR ---
[facility] CALLED AND TOLD ME THEY WOULD ACCEPT THE PATIENT, I SAID I HAD RAN IT PAST THE DAUGHTER AND SHE WAS OK WITH IT TOO. DR MEDINA STATED HE WOULD LIKE TO WAIT UNTIL TOMORROW TO SEND HER THERE. INFORMED [facility] AND PT DAUGHTER OF THIS.
--- NOTE | 2018-10-17 14:14 | NUR ---
Pt used her call kaplan and asked to be changed as she was incont of urine. Pt cleaned with the help of the CDL DRIVER, fresh attends placed and she was helped back to her chair.
--- NOTE | 2018-10-17 15:20 | NUR ---
Pt assisted to the comode again and she voided a moderate amount of yellow urine. Her attends was also wet and she was cleaned and a fresh attends placed.
--- NOTE | 2018-10-17 15:23 | NUR ---
WALKED BY PATIENT'S ROOM YESTERDAY AFTERNOON AND A COUPLE OF TIMES TODAY BUT HER DAUGHTER HAS NOT BEEN IN ANY OF THESE TIMES. PATIENT IS FORGETFUL, SO FULL LOW-SODIUM DIET EDUCATION TO PATIENT IS NOT APPROPRIATE. SHE LIVES AT [facility] WHERE MEALS ARE PROVIDED. WILL CONTINUE CONSISTENT CARB LOW SODIUM DIET WHILE HERE.
--- NOTE | 2018-10-17 16:20 | NUR ---
I ASKED PATIENT IF SHE WOULD LIKE TO TAKE A SHOWER AND SHE SAID NOT TODAY. SHE DID GET ONE YESTERDAY. BUT SHE HAS BEEN CHANGED AND EAMON CARED SEVERAL TIMES TODAY. I DID CONVINCE HER TOO EAT HER LUNCH. SHE DID PRETTY GOOD.
--- NOTE | 2018-10-17 17:37 | NUR ---
PT REPOSITIONED IN HER CHAIR AT THIS TIME. SHE APPEARS COMFORTABLE AND DENIES ANY NEW PROBLMES. SHE IS VISITING WITH HER DAUGHTER AT THIS TIME.
--- NOTE | 2018-10-17 19:41 | NUR ---
REPORT RECEIVED, PT GETTING UP OUT OF BED WITH 2 PERSON ASSIST/ FWW WITH HELP OF TAX MANAGER CPA'S, PT TO BEDSIDE COMMODE AND VOIDED, PT BACK TO BED NOW, REPOSITIONED IN BED, NO FURTHER NEEDS AT THIS TIME, CALL LIGHT WITHIN REACH, FALL PRECAUTIONS IN PLACE.
--- NOTE | 2018-10-17 20:53 | NUR ---
EVENING MEDS ADMINISTERED, PT RESTING IN BED, TOLERATED PO MEDS WELL 2 AT A TIME, ASPIRATION PRECAUTIONS UTILIZED, HOB ELEVATED, PT AOX4, SLOW TO RESPOND OCCASIONALLY BUT PT IS ALSO ALTURAS, NYSTATIN APPLIED UNDER BREASTS, SOME REDNESS NOTED, NO OPEN AREAS OF SKIN, ALSO APPLIED UNDER PANNUS, NO REDNESS NOTED, ATTENDS IN PLACE, PULSES FELT, LS CLEAR IN UPPPERS/DIM IN LOWERS, CDB ENCOURAGED, PT DENIES ANY PAIN AT THIS TIME, DENIES ANY NEEDS, CALL LIGHT WITHIN REACH. BED ALARM ON, PT VISIBLE FROM NURSES STATION. FALL PRECAUTIONS IN PLACE. IV SL, FLUSHES WELL.
--- NOTE | 2018-10-17 23:10 | NUR ---
PT RESTING IN BED, REPOSITIONED BY ALIX PEREZ, PT'S ATTENDS DRY, NO NEEDS AT THIS TIME, CALL LIGHT WITHIN REACH. FALL PRECAUTIONS IN PLACE. BED ALARM ON.
--- NOTE | 2018-10-18 01:28 | NUR ---
PT CALLING OUT IN [facility] "HELP", THIS RN TO ROOM, PT NOTED TO BE CONFUSED, REORIENTATION PROVIDED, PT DISORIENTED TO PLACE AND TIME, PT WAS ABLE TO BE CONSOLLED, WARM BLANKET PROVIDED, REASSURANCE PROVIDED, PT'S ATTENDS REMAIN DRY, PT DENIES ANY NEEDS AT THIS TIME, BED ALARM REMAINS IN PLACE.
--- NOTE | 2018-10-18 02:27 | NUR ---
PT ASSISTED TO BSC WITH 3 PERSON ASSIST, PT REQUIRED SIGNIFICANT ASSISTANCE WITH STANDING AND PIVOTING TO BSC, PT BACK TO BED NOW, BED ALARM ON, FALL PRECAUTIONS IN PLACE.
--- NOTE | 2018-10-18 03:04 | NUR ---
PT RESTING IN BED, EYES CLOSED, BREATHS EVEN, UNLABORED, NO NEEDS AT THIS TIME, CALL LIGHT WITHIN REACH. FALL PRECAUTIONS IN PLACE.
--- NOTE | 2018-10-18 04:46 | NUR ---
PT BEGAN SHIFT AOX4, BUT AROUND 0 STARTED TO BECOME MORE CONFUSED, PT REMAINS TO BE ABLE TO BE CONSOLLED AND REORIENTED WITH REASSURANCE, THIS IS BASELINE RELATED TO DEMENTIA PER REPORT, PT IS A 2 PERSON MAX ASSIST PIVOT TO BSC WITH FWW, PT HAS NOT BEEN INCONTINENT THIS SHIFT, ATTENDS REMAIN IN PLACE, BED ALARM ON DUE TO CONFUSION, PT'S CBG 304, INSULIN COVERAGE PROVIDED PER EMAR, NYSTATIN APPLIED UNDER BILAT BREASTS WELL PANNUS R/T REDNESS. PT'S VSS,
--- NOTE | 2018-10-18 06:53 | NUR ---
PT REPOSITIONED IN BED, PT YELLED OUT DURING REPOSITIONING C/O NECK PAIN, PT DESCRIBES NECK PAIN 4/10, PRN TYLENOL GIVEN PER EMAR. PT REMAINS RESTING IN BED, NO NEEDS AT THIS TIME, CALL LIGHT WITHIN REACH. FALL PRECAUTIONS IN PLACE. BED ALARM ON.
--- NOTE | 2018-10-18 07:11 | NUR ---
REPORT RECEIVED FROM ANALIA MORRISON. PT RESTING ON LEFT SIDE, PROPPED UP WITH PILLOWS. PT CALM AT THIS TIME. NO REQUESTS OR COMPLAINTS. BED RAILS UP. BED ALARM ON. CALL LIGHT WITHIN REACH.
--- NOTE | 2018-10-18 07:25 | NUR ---
PATIENT RESTING IN BED. HANDS AND FACE CLEANED. PATIENT'S BREAKFAST ORDERED. CALL LIGHT WITHIN REACH. NO OTHER NEEDS AT THIS TIME
--- NOTE | 2018-10-18 08:20 | NUR ---
MORNING ASSESSMENT AND MEDICATION DUE. PT CHEERFUL THIS MORNING, NO COMPLAINTS AT THIS TIME. PT TELLING STORIES THAT DO NOT MAKE SENSE, "I WAS SITTING UP THERE ON THAT SHELF FROM 6-9 THIS MORNING AND NOONE WOULD COME AND GET ME DOWN." "I HAVE TOO MANY SWEATERS IN THIS BED" (POINTS TO BLANKETS). PT REORINTED TO PLACE AND SITUTAION. PT ABLE TO STATE WHERE SHE IS AND WHAT MONTH IT IS. PT ABLE TO FOLLOW MOST DIRESTIONS DEPENDS SATURATIONED, EAMON CARE DONE. DEPENDS CHANGED. RAMONA LIFT UP TO CHAIR, PT TOELRATED VERY WELL WITH NO SCREAMING OR CRYING OUT. PT FEEDING SELF BREAKFAST. MEDICAITONS GIVEN. CALL LIGTH WITHIN REACH. CHAIR ALARM ON.
[2018-10-18] MEDS ORDERED: TRAZODONE HCL50 MG PO (09:00)
[2018-10-18] MEDS ORDERED: FUROSEMIDE20 MG PO (09:00)
--- NOTE | 2018-10-18 09:22 | NUR ---
PATIENT SITTING UP IN CHAIR. VITAL SIGNS AND I&O DONE. CALL LIGHT WITHIN REACH. NO OTHER NEEDS AT THIS TIME
--- NOTE | 2018-10-18 09:24 | NUR ---
MEDICATION GIVEN. PT TALKING ABOUT "FIRES ACROSS THE STREET." PT REORIEND TO PLACE AND SITUATION. PT REMAINS UP TO CHAIR. CALL LIGHT WITHIN REACH. CHAIR ALARM ON.
--- NOTE | 2018-10-18 09:35 | NUR ---
CALL ATTEMPTED TO PTS DAUGHTER, GABBY, WITH UPDATE ON PLAN OF TRANSFER. NO ANSWER AT THIS TIME.
--- NOTE | 2018-10-18 09:55 | NUR ---
2ND CALL ATTEMPTED TO PTS FAMILY. NO ANSWER AT THIS TIME.
--- NOTE | 2018-10-18 09:58 | NUR ---
Faxed [facility] pt's discharge orders. Called and spoke to Naveen regarding sent paperwork. Naveen stated to have primary RN call with RN report and ensure paperwork received by [facility] staff. Rhianna MORRISON, pt's primary nurse to call [facility] and report to facility. Plan to d/c pt to facility here shortly; Naveen aware of plan of care to facility.
--- NOTE | 2018-10-18 10:04 | NUR ---
REPORT CALLED TO JOSE HALE AT [facility], WHO STATES ALL HER QUESITONS HAVE BEEN ANSWERED.
--- NOTE | 2018-10-18 10:25 | NUR ---
3RD CALL ATTEMPTED TO FAMILY. NO ANSWER AT THIS TIME.
--- NOTE | 2018-10-18 10:37 | NUR ---
CALL ATTEMPTED TO [facility]. NUMBER IN CHART STATES "NO LONGER IN SERVICE."
--- NOTE | 2018-10-18 10:38 | NUR ---
2PA, FWW UP TO STANT. PIVOT TO BEDSIDE COMODE. PT VOIDS WIHTOUT ISSUE. DEPENDS DRY. EAMON CARE DONE. DEPENDS CHANGED. PT DRESSED IN HOME CLOTHES. 2PA, FWW BACK TO CHAIR. CHAIR ALARM ON. CALL LIGHT WITHIN REACH.
--- NOTE | 2018-10-18 10:41 | NUR ---
PTS DAUGHTER GABBY REACHED BY PHONE. GABBY UPDATED ON PLAN OF CARE AND PT TRANSFER TO [facility]. GABBY VERBALIZES UNDERSTANDING AND STATES HER QUESTIONS HAVE BEEN ANSWERED. JACE CONTACTED FOR TRANSFER TO [facility].
--- NOTE | 2018-10-18 10:54 | NUR ---
PIV DC'D PER PROTOCOL, WNL, BY PRINCE ARGUELLO. NIEVES AND GIOVANNY LARA.
--- NOTE | 2018-10-18 11:20 | NUR ---
TRANSPORT PERSONELL HERE TO [employer] PT. PT 2PA, FWW UP TO WHEELCHAIR WITH PRINCE BATISTA AND ALIX POWER. PERSONELL BELONGINGS RETURNED TO PT. PT VERBALIZES UNDERSTANDING OF TRANSFER. TRANSFER PACKET GIVEN TO TRANSPORT LUCIEN.
--- NOTE | 2018-10-18 11:20 | NUR ---
PATIENT SITTING UP IN CHAIR. FINAL VITAL SIGNS WERE OBTAINED PRIOR TO DISCHARGE FROM THE UNIT
== END 2018-10-18 11:20 | DRG 291 ==
LOC: ED 07:48 → CCU 12:05 → MS 10-16 10:55
PROVIDERS: ADMIT Internal Medicine
DX: I11.0 Hypertensive heart disease with heart failure (principal); G93.41 Metabolic encephalopathy; N39.0 Urinary tract infection, site not specified; I50.33 Acute on chronic diastolic (congestive) heart failure; B96.1 Klebsiella pneumoniae [K. pneumoniae] as the cause of diseases classified elsewhere; G31.84 Mild cognitive impairment of uncertain or unknown etiology; G47.00 Insomnia, unspecified; I35.0 Nonrheumatic aortic (valve) stenosis; R26.81 Unsteadiness on feet; I48.2 Chronic atrial fibrillation; K21.9 Gastro-esophageal reflux disease without esophagitis; E78.5 Hyperlipidemia, unspecified; E11.9 Type 2 diabetes mellitus without complications; F39 Unspecified mood [affective] disorder; Z86.73 Personal history of transient ischemic attack (TIA), and cerebral infarction without residual deficits; Z88.0 Allergy status to penicillin; Z88.5 Allergy status to narcotic agent; Z66 Do not resuscitate; Z79.02 Long term (current) use of antithrombotics/antiplatelets; Z79.4 Long term (current) use of insulin; Z79.891 Long term (current) use of opiate analgesic; Z79.899 Other long term (current) drug therapy
CPT/HCPCS: 36415; 51702; 71045; 80048; 80053; 81001; 83036; 83735; 83880; 84484; 85025; 93005; 93010; 93306; 97110; 97162; 97530; 99285-25; J0696; J1815; J1940; J3475

== ENCOUNTER 2019-04-25 11:44 | Inpatient (IN) | payer MEDICARE, OTHER ==
[~2019-04-25] VITALS: Ht 160 cm; Wt 81.6 kg
[~2019-04-25 11:44] MED LIST changes: +ISOSORBIDE MONO30 MG PO; +NOVOLIN 70100 UNIT/1 SUB-Q; +NYSTATIN15 GM TOP; +TRAZODONE HCL50 MG PO
[2019-04-26] MEDS ORDERED: ELIQUIS2.5 MG PO (14:16)
[2019-04-26] MEDS ORDERED: LASIX40 MG PO (14:17)
[2019-04-26] MEDS ORDERED: KLOR-CON 1010 MEQ PO (14:24)
[2019-04-26] MEDS ORDERED: ACETAMINOPHEN325 M1 PO (14:30)
[2019-04-26] MEDS ORDERED: SENNA-DOCUSATE1 EAC1 PO (14:31)
[2019-04-26] MEDS ORDERED: SUPER CAL-MAG1 EACH PO (14:35)
--- NOTE | 2019-04-28 07:23 | CONS ---
[facility] [address], [place] [address] Signed DATE OF CONSULTATION: 04/26/2019 REQUESTING PHYSICIAN: Dr. Gomez. HISTORY OF PRESENT ILLNESS: Julia is an 88-year-old white female with significant dementia, who lives at a local long-term care facility. It appears she has a fairly minimal ambulator. She was brought to the emergency room after an apparent unwitnessed fall yesterday. In the emergency room, she was noted to have a slightly displaced intertrochanteric fracture on the right hip and was admitted to the hospitalist service. At the present time, apparently her only complaint is pain in the right hip area. PAST MEDICAL HISTORY: Deferred to Dr. Gomez's exhaustive note. CURRENT MEDICATIONS: Deferred to Dr. Gomez's exhaustive note. ALLERGIES: Deferred to Dr. Gomez's exhaustive note. PHYSICAL EXAMINATION: EXTREMITIES: On examination, the right leg is shortened and externally rotated. She gives inconsistent sensory responses to light touch, but I believe that is consistent with a rather severe dementia. There is no tenderness about the knee or the calf. She is able to dorsiflex and plantar flex her toes and the pulses are bilaterally symmetrical, although diminished. IMPRESSION: I reviewed the x-rays and she indeed has a three-part intertrochanteric with a small lesser trochanteric fragment that should be relatively stable. I have discussed with the family that these typically do better if they are stabilized surgically, although we did explain that there is at least 35% mortality rate before they leave the hospital. We also outlined all the other potential risks and complications, including a heart attack, heart failure, stroke, pneumonia, infection, bleeding, and DVT with or without pulmonary emboli. After outlining all potential risks and complications, and the relatively rodríguez statistics concerning intertrochanteric fracture in the 82-year-old, the family would like to proceed. Unfortunately, the patient takes an oral anticoagulant and we will have to wait until Saturday to her surgery. I did discuss with Dr. Gomez the fact that I will be out of town beginning Saturday Electronically Signed By: GÓMEZ KHALIL MD 04/28/19 0723 PATIENT NAME: JULIA SOLORIO CONSULTATION DATE OF : 34 REPORT #: [id number] PHYSICIAN: GÓMEZ KHALIL MD PCP: OLIVIER BERMAN MD REPORT IS CONFIDENTIAL AND NOT TO BE RELEASED WITHOUT AUTHORIZATION [facility] [address] [place] [id number] Signed afternoon. I explained to him, I would be happy to provide orthopedic consultative services, but we discussed and he agreed that I would not be taking over as the attending physician on Ms. Solorio' case. Gómez Khalil MD [facility] /[id number] Copies: ~ Electronically Signed By: GÓMEZ KHALIL MD 04/28/19 0723 PATIENT NAME: JULIA SOLORIO CONSULTATION DATE OF : 34 REPORT #: [id number] PHYSICIAN: GÓMEZ KHALIL MD PCP: OLIVIER BERMAN MD REPORT IS CONFIDENTIAL AND NOT TO BE RELEASED WITHOUT AUTHORIZATION
--- NOTE | 2019-04-28 20:48 | EKG ---
[facility] [address] [facility] [place] [address] Signed Atrial fibrillation Left axis deviation Anteroseptal infarct (cited on or before 24-APR-2017) Abnormal ECG When compared with ECG of 13-OCT-2018 08:19, Nonspecific T wave abnormality, worse in Inferior leads Nonspecific T wave abnormality now evident in Lateral leads Confirmed by BECKY MEDINA DO ([id number]) on 04/28/2019 8:48:41 PM Electronically Signed By: BECKY MEDINA DO 04/28/19 2048 PATIENT NAME: DANIELA SOLORIOFERNANDO BENJAMIN Electrocardiogram DATE OF : 34 PHYSICIAN: BECKY MEDINA DO REPORT #: [id number] REPORT IS CONFIDENTIAL AND NOT TO BE RELEASED WITHOUT AUTHORIZATION
--- NOTE | 2019-04-29 10:17 | OR ---
[facility] [address] [place], [place] [address] Signed DATE OF OPERATION: 04/28/2019 SURGEON: Gómez Khalil MD PREOPERATIVE DIAGNOSIS: Intertrochanteric fracture, right hip. POSTOPERATIVE DIAGNOSIS: Intertrochanteric fracture, right hip. PROCEDURE: Fixation of intertrochanteric fracture, right hip with a trochanteric fixation nail. ANESTHESIA: Spinal. SPECIMENS AND COMPLICATIONS: There were no specimens or complications. WHAT WAS DONE: The patient was taken to the operating room. After anesthesia was induced, the patient was placed on the fracture table, made secure, and all the bony prominences were well padded. We then reduced the fracture with some longitudinal traction and neutral rotation. AP and lateral fluoroscopy confirmed good alignment and good position. The patient was then prepped and draped in a routine sterile fashion. We then made a small incision near the tip of the greater trochanter in line with the longitudinal axis of the femur. The skin and subcutaneous tissue were divided sharply. We then used a curved awl to create a small defect in the tip of the greater trochanter. We then able to pass the guide efe down the femoral canal. We passed the proximal reamer followed by a 12 mm distal reamer. We then impacted an 11 x 170 mm right TFN nail. It was locked proximally with 115 degrees spiral blade and distally with a single 38 5.0 mm screw. The wounds were gently irrigated and closed. Sterile dressings were applied. The patient was awakened, taken to recovery room where she arrived in stable condition. Counts were correct and antibiotic protocols were followed. Gómez Khalil MD Electronically Signed By: GÓMEZ KHALIL MD 04/29/19 1017 PATIENT NAME: JULIA SOLORIO OPERATIVE REPORT DATE OF : 34 REPORT #: [id number] PHYSICIAN: GÓMEZ KHALIL MD PCP: OLIVIER GORDON MD REPORT IS CONFIDENTIAL AND NOT TO BE RELEASED WITHOUT AUTHORIZATION [address] [place], [place] [address] Signed [facility] /[id number] cc: Olivier Gordon MD Copies: OLIVIER GORDON MD ~ Electronically Signed By: GÓMEZ KHALIL MD 04/29/19 1017 PATIENT NAME: JULIA SOLORIO OPERATIVE REPORT DATE OF : 34 REPORT #: [id number] PHYSICIAN: GÓMEZ KHALIL MD PCP: OLIVIER GORDON MD REPORT IS CONFIDENTIAL AND NOT TO BE RELEASED WITHOUT AUTHORIZATION
[2019-04-29] MEDS ORDERED: OXYCODONE HCL5 MG PO (14:58)
[2019-04-29] MEDS ORDERED: CITALOPRAM HBR20 MG PO (14:58)
[2019-04-29] MEDS ORDERED: TYLENOL EXTRA500 MG PO (14:59)
[2019-04-29] MEDS ORDERED: LANTUS100 UNITS/ SUB-Q (15:00)
== END 2019-04-29 16:20 | DRG 481 ==
LOC: ED 11:44 → MS 14:04
PROVIDERS: Orthopaedic Surgery; ADMIT Internal Medicine
PROC: 0QH634Z Insertion of Internal Fixation Device into Right Upper Femur, Percutaneous Approach (ICD-10-PCS; principal; 2019-04-28 09:30)
DX: M80.051A Age-related osteoporosis with current pathological fracture, right femur, initial encounter for fracture (principal); I50.32 Chronic diastolic (congestive) heart failure; I48.19 Other persistent atrial fibrillation; I35.0 Nonrheumatic aortic (valve) stenosis; I11.0 Hypertensive heart disease with heart failure; K21.9 Gastro-esophageal reflux disease without esophagitis; E78.5 Hyperlipidemia, unspecified; E11.9 Type 2 diabetes mellitus without complications; F39 Unspecified mood [affective] disorder; R41.81 Age-related cognitive decline; W19.XXXA Unspecified fall, initial encounter; Y92.129 Unspecified place in nursing home as the place of occurrence of the external cause; Z66 Do not resuscitate; Z88.0 Allergy status to penicillin; Z86.73 Personal history of transient ischemic attack (TIA), and cerebral infarction without residual deficits; Z88.5 Allergy status to narcotic agent; Z79.01 Long term (current) use of anticoagulants; Z79.4 Long term (current) use of insulin; Z79.899 Other long term (current) drug therapy
CPT/HCPCS: 01210; 36415; 51702; 71045; 72170; 73501; 73502; 80048; 80053; 81001; 83036; 83735; 83880; 85025; 87502; 93005; 93010; 94762; 97163; 99285-25; C1713; C1769; J0690; J1100; J1650; J1815; J1885; J1940; J2001; J2270; J2370; J2405; J2704; J3010; J3475; J7040; J7121

== ENCOUNTER 2021-12-06 17:50 | Observation (INO) | payer MEDICARE, OTHER ==
[~2021-12-06] VITALS: Ht 160 cm; Wt 54.3 kg
[~2021-12-06 17:50] MED LIST changes: +ACETAMINOPHEN325 M1 PO; +CITALOPRAM HBR20 MG PO; +KLOR-CON 1010 MEQ PO; +LASIX20 MG PO; +OXYCODONE HCL5 MG PO; +POTASSIUM CHLO10 ME2 PO; -POTASSIUM CHLO10 MEQ PO; +SENNA-DOCUSATE1 EAC1 PO; +SUPER CAL-MAG1 EACH PO; +TYLENOL EXTRA500 MG PO
--- OUTSIDE RECORDS SUMMARY | 2021-12-06 17:53 | XMS ---
PreManage Notification: JULIA SOLORIO Security Graduate Student Instructor Events No recent Security Events currently on file CRITERIA MET - [facility] OLIVIER BERMAN [facility] 10/14/2018-Current PHONE: Unknown [facility]: [facility]ONE: Unknown Jaime has no Care Guidelines for this patient. E.D. VISIT COUNT (12 MO.) 1 SAM Nichole TOTAL 1 NOTE: Visits indicate total known visits. ED/UCC VISIT TRACKING (12 MO.) 12/06/2021 17:51 SAM Jaimes OR TYPE: Emergency COMPLAINT: - WEAKNESS INPATIENT VISIT TRACKING (12 MO.) No inpatient visits to display in this time frame [email or web address]
--- NOTE | 2021-12-06 23:25 | NUR ---
PHONE CALL TO , TELEPHONE ORDER FOR PUREWICK FEMALE EXTERNAL CATHETER RECEIVED. ORDER UPDATED.
--- NOTE | 2021-12-06 23:53 | NUR ---
pt RESTING IN BED WITH EYES CLOSED. RESPONSIVE TO VOICE. DOES NOT ANSWER ORIENTATION QUESTIONS. COOPERATIVE WITH CARES. INCONTINENT OF URINE, ATTENDS CHANGED, EAMON CARE COMPLETE. PUREWICK CATHETER PLACED, EDUCATION PROVIDED. ASSESSMENT COMPLETE. IVF INFUSING WNL. BED ALARM ON FOR SAFETY.
[2021-12-07] MEDS ORDERED: ATIVAN1 MG PO (00:12)
--- NOTE | 2021-12-07 02:23 | NUR ---
HARSHAL Baird MD NOTIFIED VIA TELEPHONE. TELEPHONE ORDER TO ADMISTER SS INDICATED, NO ADDITIONAL ORDERS RECEIVED. pt RESTING IN BED WITH EYES CLOSED. EDUCATION PROVIDED. pt RESPONDS WITH INCOMPREHENSIBLE SPEECH. EYES REMAIN CLOSED. IVF INFUSING WNL. PUREWICK CATHETER DRAINING YELLOW URINE. BED ALARM ON.
--- NOTE | 2021-12-07 04:11 | NUR ---
pt RESTING IN BED WITH EYES CLOSED. BREATHING UNLABORED. NO DISTRESS NOTED. BED ALARM ON.
--- NOTE | 2021-12-07 06:54 | NUR ---
CNAS IN ROOM TO REPOSITION pt. ATTENDS CHANGED, SMALL AMT OF URINE AROUND PUREWICK. pt RIGID WITH TURNING, CALLING OUT WITH TURNS. BED ALARM ON.
--- NOTE | 2021-12-07 10:30 | NUR ---
Patient is confused and agitated with staff during cares. Patient received ativan 1mg iv at this time per provider order. Ratna remains at bedside visiting with patient and helping with cares. Updated daughter regarding plan of care.
--- NOTE | 2021-12-07 11:00 | NUR ---
SPOKE WITH MARIA D FROM [facility]. THEY ARE ABLE TO ACCEPT THE PATIENT BACK WHENEVER SHE IS READY. DR. GRACIA UPDATED. INTO PATIENT ROOM, DAUGHTER AT BEDSIDE. ADVISED OF POSSIBLE RETURN TO FACILITY THIS AFTERNOON OR TOMORROW. DAUGHTER STATES THAT PATIENT IS NORMALLY WC BOUND SO SHE COULD TRANSPORT BY [facility]. ADVISED DAUGHTER CASE MANAGEMENT WILL CALL HER WITH DICHARGE UPDATE WHEN AVAILABLE.
--- NOTE | 2021-12-07 11:32 | NUR ---
Patient in bed resting, eyes closed, respirations even and non labored. Patient's daughter at bedside visiting. IV fluids and kcl IV infusing per provider order. No current needs, personal supplies and call light within reach.
[2021-12-07] MEDS ORDERED: CEFDINIR300 MG PO (12:09)
[2021-12-07] MEDS ORDERED: ARTHRITIS PAIN650 MG PO (12:32)
[2021-12-07] MEDS ORDERED: BASAGLAR K100 UNIT/1 SUB-Q (12:41)
[2021-12-07] MEDS ORDERED: CLONAZEPAM0.5 MG PO (12:47)
[2021-12-07] MEDS ORDERED: DULCOLAX10 MG PR (12:48)
[2021-12-07] MEDS ORDERED: TYLENOL325 MG PO (12:48)
[2021-12-07] MEDS ORDERED: TRAZODONE HCL50 MG PO (12:49)
[2021-12-07] MEDS ORDERED: ZESTRIL2.5 MG PO (12:50)
[2021-12-07] MEDS ORDERED: LOPERAMIDE2 M1 PO ×2 (12:50→12:51)
[2021-12-07] MEDS ORDERED: NYSTOP60 GM TOP (12:52)
[2021-12-07] MEDS ORDERED: MILK OF MA400 MG/5 M PO (12:52)
[2021-12-07] MEDS ORDERED: PEPTO-BISM262 MG/15 PO (12:53)
[2021-12-07] MEDS ORDERED: ZYPREXA2.5 MG PO (12:56)
[2021-12-07] MEDS ORDERED: ACTOS15 MG PO (12:56)
[2021-12-07] MEDS ORDERED: BUSPIRONE HCL15 MG PO (12:57)
--- NOTE | 2021-12-07 12:59 | NUR ---
MED REC COMPLETE
--- NOTE | 2021-12-07 13:18 | NUR ---
Patient awake, yelling and moaning. Per pt's daughter this morning, pt does moan and yell at baseline. Patient sitting still in bed, hands resting in her lap, no notable physical distress. Patient remains close to RN station, bed alarm intact. Personal supplies and call light within reach.
--- NOTE | 2021-12-07 14:24 | NUR ---
PT ASSSITED IN EATING TWO APPLE SAUCES, ONE PUDDING, ONE ICECREAM.
--- NOTE | 2021-12-07 15:37 | NUR ---
Faxed order, H&P, DC summary, RX, covid test to [place] at [facility]. Johnnie coelho is scheduled for pickup at 5pm.
== END 2021-12-07 17:00 | disposition home or self-care (01) ==
LOC: ED 17:50 → MS 17:52
PROVIDERS: ADMIT Internal Medicine; ATTEND Internal Medicine
DX: G93.41 Metabolic encephalopathy (principal); N39.0 Urinary tract infection, site not specified; I48.91 Unspecified atrial fibrillation; M19.90 Unspecified osteoarthritis, unspecified site; G47.30 Sleep apnea, unspecified; D64.9 Anemia, unspecified; E11.65 Type 2 diabetes mellitus with hyperglycemia; I11.0 Hypertensive heart disease with heart failure; I50.9 Heart failure, unspecified; E78.5 Hyperlipidemia, unspecified; H90.5 Unspecified sensorineural hearing loss; Z66 Do not resuscitate; Z86.73 Personal history of transient ischemic attack (TIA), and cerebral infarction without residual deficits; Z79.01 Long term (current) use of anticoagulants; Z88.0 Allergy status to penicillin; Z88.5 Allergy status to narcotic agent; Z79.4 Long term (current) use of insulin; Z20.822 Contact with and (suspected) exposure to COVID-19
CPT/HCPCS: 36415; 70450; 71045; 80048; 80053; 81001; 85025; A9270; C9803; J0696; J1815; J2060; J2405; J3480; J7030; J7060; U0003